=== PATIENT | male | born 1985 | race Caucasian/White ===

== ENCOUNTER 2023-11-20 08:49 | Outpatient (CLI) | payer BC | END 2023-11-20 23:59 | disposition home or self-care (01) | LOC: MRI 08:49 | PROVIDERS: ATTEND Podiatrist Foot & Ankle Surgery | DX: S92.911A Unspecified fracture of right toe(s), initial encounter for closed fracture (principal); M79.89 Other specified soft tissue disorders; M79.671 Pain in right foot; X58.XXXA Exposure to other specified factors, initial encounter; Y93.89 Activity, other specified; Y92.89 Other specified places as the place of occurrence of the external cause; Y99.8 Other external cause status | CPT/HCPCS: 73718 ==